=== PATIENT | female | born 1955 | race Caucasian/White ===

== ENCOUNTER 2019-04-08 18:07 | Emergency (ER) | payer MEDICARE, BC ==
[2019-04-08] MEDS ORDERED: oxyCODONE/Acetamin 5/325 MG* TAB PO ONE (19:19)
[2019-04-08] MEDS ORDERED: Lidocaine 1% MPF ** 5 ML VIAL INJ ONE (21:21)
[2019-04-08] MEDS ORDERED: Lorazepam PYXIS KEY PRN (21:30)
[2019-04-08] MEDS ORDERED: LORazepam INJ* 2 MG/ML 1 ML VIAL IV PUSH ONE (21:30)
[2019-04-08] MEDS ORDERED: Lorazepam PYXIS KEY ONE (21:52)
--- NOTE | 2019-04-08 23:02 | ED ---
Upper Extremity Pain - HPI Summary HPI Summary: 64 year old female presents with right wrist injury. She states that she fell and landed on her outstretched hand. She has deformity noted to her right wrist. States she's broke this wrist 5 times previously. She is right-handed. Has a history of osteopenia and anxiety. She states that she is very anxious about any medical procedures. Denies any head injury. no LOC. No other injury. Denies any elbow pain. No numbness or tingling. - History of Current Complaint Chief Complaint: EDExtremityUpper Stated Complaint: RT ARM INJURY PER PT Time Seen by Provider: 04/08/19 18:58 - Allergies/Home Medications Allergies/Adverse Reactions: Allergies Allergy/AdvReac Type Severity Reaction Status Date / Time No Known Allergies Allergy Verified 04/08/19 18:18 PMH/Surg Hx/FS Hx/Imm Hx Endocrine/Hematology History: Denies: Hx Diabetes Cardiovascular History: Reports: Hx Hypertension - ON MEDS FOR AND CONTROLLED Denies: Hx Pacemaker/ICD Respiratory History: Denies: Hx Asthma History: Denies: Hx Renal Disease Musculoskeletal History: Denies: Hx Osteoporosis Sensory History: Denies: Hx Hearing Aid Psychiatric History: Denies: Hx Panic Disorder - Cancer History Hx Chemotherapy: No Hx Radiation Therapy: No - Surgical History Surgery Procedure, Year, and Place: ;. PARATHYROIDECTOMY;. ANAL FISTUAL REPAIR; Infectious Disease History: No Infectious Disease History: Denies: Traveled Outside the [place] in Last 30 Days - Family History Known Family History: Positive: Non-Contributory - Social History Alcohol Use: Recovering for 30 years Substance Use Type: Reports: None Smoking Status (MU): Never Smoked Tobacco Review of Systems Negative: Fever Negative: Chest Pain Negative: Shortness Of Breath Positive: Myalgia - right wrist pain All Other Systems Reviewed And Are Negative: Yes Physical Exam Triage Information Reviewed: Yes Vital Signs On Initial Exam: Initial Vitals Temp Pulse Resp BP Pulse Ox 99.1 F 69 16 150/78 98 04/08/19 18:16 04/08/19 18:16 04/08/19 18:16 04/08/19 18:16 04/08/19 18:16 Vital Signs Reviewed: Yes Appearance: Positive: Well-Appearing Skin: Positive: Warm, Dry Head/Face: Positive: Normal Head/Face Inspection Eyes: Positive: Normal, Conjunctiva Clear ENT: Positive: Pharynx normal Respiratory/Lung Sounds: Positive: Clear to Auscultation, Breath Sounds Present Cardiovascular: Positive: Normal, RRR Musculoskeletal: Positive: Limited @ - deformity to right wrist, Other - good pulses, sensation grossly intact, abrasion anterior aspect of right wrist Neurological: Positive: Normal Psychiatric: Positive: Normal Procedures - Sedation Patient Received Moderate/Deep Sedation with Procedure: No - Splinting wrist Location: right wrist Splint: sugar-tong Pre-Proc Neuro Vasc Exam: normal Post-Proc Neuro Vasc Exam: normal Splint Applied by Provider: Jonna Pang - Joint Reduction Right Joint Reduction Site: wrist (R) Conscious Sedation: No Reduction Attempts: 1 - finger traps Pre-Procedure NV Exam: Yes Post Joint Reduction Film: joint not reduced Diagnostics - Vital Signs Vital Signs Temp Pulse Resp BP Pulse Ox 04/08/19 21:58 16 04/08/19 20:01 18 04/08/19 18:16 99.1 F 69 16 150/78 98 - Laboratory Lab Statement: Any lab studies that have been ordered have been reviewed, and results considered in the medical decision making process. - Radiology wrist Radiology Interpretation Completed By: ED Physician Summary of Radiographic Findings: radius fracture Course/Dx - Course Course Of Treatment: 64 year old female presents with right wrist injury. She states that she fell and landed on her outstretched hand. She has deformity noted to her right wrist. States she's broke this wrist 5 times previously. She is right-handed. Has a history of osteopenia and anxiety. She states that she is very anxious about any medical procedures. Denies any head injury. no LOC. No other injury. Denies any elbow pain. No numbness or tingling. On exam deformity noted to right wrist. neurovascular Intact. X-ray shows radius and ulnar fracture. Patient was very hesitant to have area reduced. wanted couscnious sedation but unable to go such safely with nursing staff. finally convince patient to give some ativan and did hematoma block and hung in finger traps. has minimal improvement with reduction .placed in sugar tong. will have follow up with ortho. patient understand and agrees with plan. - Diagnoses Differential Diagnosis/HQI/PQRI: Positive: Fracture (Closed), Strain, Sprain Provider Diagnoses: Right wrist fracture Discharge ED - Sign-Out/Discharge Documenting (check all that apply): Patient Departure - Discharge Plan Condition: Good Disposition: HOME Prescriptions: oxyCODONE/Acetamin 5/325 MG* [Percocet 5/325 TAB*] 1 tab PO Q6H PRN #12 tab MDD 4 PRN Reason: Pain - Severe Patient Education Materials: Wrist Fracture in Adults (ED) Referrals: Cruz Patel MD [Medical Doctor] - Praveena Bridges MD [Primary Care Provider] - Additional Instructions: Keep elbow in sling as needed Keep splint on area and keep dry Call ortho office tomorrow to set up appointment for follow up Use ibuprofen for pain every 6 hours and use percocet for breakthrough pain every 6 hours as needed Ice, elevate Return to ED if develop any new or worsening symptoms - Billing Disposition and Condition Condition: GOOD Disposition: Home - Attestation Statements Provider Attestation: I was available for consultation for this patient. I did not evaluate the patient, or participate in any medical decision making or disposition decisions unless I am specifically named in the chart as having consulted on the patient. If I have consulted on the patient, please see my own ED note on the patient encounter. Serena Gupta MD
[2019-04-08 23:57] VITALS: BP 117/66
== END 2019-04-08 23:56 | disposition home or self-care (01) ==
LOC: ED 18:07
DX: S62.101A Fracture of unspecified carpal bone, right wrist, initial encounter for closed fracture (principal); W19.XXXA Unspecified fall, initial encounter; Y92.9 Unspecified place or not applicable; I10 Essential (primary) hypertension
CPT/HCPCS: 25680; 96374; 99282; A9270-GY; J2060

== ENCOUNTER → 2019-04-18 11:59 | Day surgery (SDC) | payer MEDICARE, BC ==
[~2019-04-18 11:59] MED LIST: Acetaminophen IV 1GM/100ML * 1,000 MG/100 ML VIAL IVPB ONE; Buffered Lidocaine 1% SYRIN* 1 ML/SYRINGE INTRADERM ONE; Bupivacaine 0.25% EPI 200,000* 30 ML SDV ONE; DiMENhydriNATE IV* 50 MG/ML VIAL IV PUSH PRN; HYDROmorphone INJ1* 1 MG/ML SYRINGE ONE; Ketorolac INJ* 30 MG/ML 1 ML VIAL ONE; Lactated Ringers 1000 ML Bag* 1,000 ML IV SCH; Midazolam* 1 MG/ML 2 ML VIAL (2 MG) ONE; Naloxone* 0.4 MG/ML 1 ML VIAL IV PRN; Propofol* 10 MG/ML 20 ML BTL ONE; ceFAZolin 2 GM in NS PREMIX(*) 2 GM/100 ML BAG IVPB ONE; fentaNYL* 50 MCG/ML 2 ML VIAL (100 MCG VIAL) ONE
[2019-04-18] MEDS: fentaNYL* 50 MCG/ML 2 ML VIAL (100 MCG VIAL) IV PRN ×5 (17:36→17:58)
[2019-04-18] MEDS: HYDROmorphone INJ* 0.5 MG/0.5 ML SYRINGE IV PRN ×2 (20:30→20:35)
[2019-04-18 21:48] VITALS: BP 147/63
--- NOTE | 2019-04-19 06:18 | OP ---
DATE OF OPERATION: 04/18/19 - [facility] DATE OF : 53 SURGEON: Nabil Shaver MD FRIT MIXER: NEW [place]. A physician retail loan originator assistant was required for the length of the procedure for assistance with patient positioning, retraction, instrumentation, and closure. ANESTHESIOLOGIST: Dr. Octavio Whittington. ANESTHESIA: General anesthesia, local anesthesia with a total of 15 cc of Marcaine 0.25% with epinephrine. 7 cc were placed just prior to incision and 8 cc were placed just after closure. PRE-OP DIAGNOSIS: Right distal radius fracture, displaced. POST-OP DIAGNOSIS: Right distal radius fracture, displaced. OPERATIVE PROCEDURE: Open reduction internal fixation of right distal radius fracture. ANTIBIOTICS: Ancef 2 g IV. IV FLUIDS: See Anesthesia note. TAXW-GD-PPRD TIME: 66 minutes. TOURNIQUET TIME: 68 minutes at 250 mmHg, right upper arm tourniquet. RADIATION EXPOSURE: A mini C-arm was utilized. SPECIMEN: None. IMPLANTS: Synthes variable angle locking plate, volar, distal radius, right. Medium width. 3-hole plate. Plate was filled with 2.4 mm locking screws and a single 2.7 mm nonlocking screw. COMPLICATIONS: None. ESTIMATED BLOOD LOSS: Minimal. INDICATIONS FOR PROCEDURE: The patient is a 64-year-old woman, right hand dominant, who was injured on 04/08/19, 10 days preoperatively. She was noted to have much pain, swelling, and deformity of the right wrist in the emergency room. An attempted closed reduction was performed by emergency room staff. This improved slightly the reduction, but there was still significant amount of displacement. This included a dorsal tilt of well over 20 degrees. I measured the post reduction dorsal tilt to be 26 degrees. There was also some dorsal translation. Minimally displaced ulnar styloid process fracture. The patient and I discussed nonoperative and operative management, pros and cons. We decided on surgery. We discussed risks and potential complications. DESCRIPTION OF PROCEDURE: In preoperative holding, the patient signed a written consent. Operative extremity was marked in preoperative holding. The patient was taken back to the operating room and kept on stretcher. The patient was sedated and intubated. Hand tape was applied. Tourniquet was applied to the right upper arm, but not inflated. The right upper extremity was prepped and draped. Surgical time-out performed. Esmarch was applied and tourniquet was elevated. I made a 7 cm skin incision, longitudinal, standard for a volar approach to the distal radius. I dissected down to the FCR tendon sheath. I incised that, retracted the FCR and incised the FCR subsheath. Retracted FPL and identified pronator quadratus. This was incised off the radial aspect of the distal radius. No significant bleeding. Identified fracture site. Used a curette and rongeur to debride the fracture site. Irrigation. I performed reduction manually. I briefly placed a 0.062 K-wire, but removed it. Picked a medium width plate. Placed that in the wound. Pinned it into place with the distal radius reduced. Confirmed good rotation of plate. Placed a 2.4 mm nonlocking cortical screw in the oval hole proximally. Adjusted the position proximal to distal. Repinned the plate. I placed a nonlocking screw through the distal row. This obtained and maintained reduction. Mini C-arm images showed excellent plate position and excellent reduction. I had visually confirmed excellent reduction, anatomic or near anatomic. I filled the plate with locking screws in the distal 2 rows as well as 2 locking screws proximally. I replaced the nonlocking 2.4 mm screw with a nonlocking 2.7 mm screw. Final images were obtained. Irrigation. I closed the FCR subsheath to the pronator quadratus. I did that closure with figure-of- eight stitches using Vicryl 3-0 suture. Closed the subcutaneous tissue with buried simple stitches using Vicryl 3-0 suture. Running stitch of the skin with nylon 4-0 suture. Some additional local, 8 cc was placed about the skin incision at this time. Of note, I had also placed local prior to my skin incision earlier. Xeroform, 4x4s, sterile Webril. Volar splint using plaster placed and overwrapped with an Charlie bandage. The patient was awakened, extubated , and transferred to the PACU. DISPOSITION: The patient already had narcotic pain medication prescribed to her that she can take as needed for pain. This is Percocet. The patient will remain in her volar splint until she follows up in the clinic in approximately 2 weeks. She already had a sling and can use that as needed to elevate the extremity. The patient is going to [place] for the holidays. She can contact me by cellphone. I anticipate that after the 2-week clinic visit we will get the patient into a removable wrist brace. [id number]/[facility] #: [id number] [place]
== END | disposition home or self-care (01) ==
LOC: OR 11:59
PROVIDERS: ATTEND Orthopaedic Surgery
PROC: 0PSH04Z Reposition Right Radius with Internal Fixation Device, Open Approach (ICD-10-PCS; principal; 2019-04-18 13:45)
DX: S52.501A Unspecified fracture of the lower end of right radius, initial encounter for closed fracture (principal); I10 Essential (primary) hypertension; K21.9 Gastro-esophageal reflux disease without esophagitis; B00.9 Herpesviral infection, unspecified; F41.9 Anxiety disorder, unspecified; E78.5 Hyperlipidemia, unspecified; W00.0XXA Fall on same level due to ice and snow, initial encounter; Y93.89 Activity, other specified; Y92.89 Other specified places as the place of occurrence of the external cause; Z87.891 Personal history of nicotine dependence
CPT/HCPCS: 76000; C1713; C1776; J0690; J1170; J1885; J2250; J2704; J3010